=== PATIENT | female | born 1950 | race Caucasian/White ===

== ENCOUNTER 2017-11-06 07:48 | Day surgery (SDC) | payer OTHER ==
[2017-11-06 08:51] VITALS: O2SAT 100
--- NOTE | 2017-11-06 11:03 | CP.SDSHP ---
Same Day Surgery H & P - History Proposed Procedure: EGD Pre-Op Diagnosis: SEE NOTES - Previous Medical/Surgical History Cardiac: Hypertension Endocrine/Metabolic: Diabetes, Other Misc: Other Pain: 4.Moderate Pain - Allergies Allergies: Allergies No Known Allergies Allergy (Unverified 11/06/17 08:37) - Physical Exam General Appearance: N Vital Signs: Vital Signs 11/06/17 08:30 Temperature 98.6 F Pulse Rate 58 L Respiratory 19 Rate Blood Pressure 155/71 H O2 Sat by Pulse 100 Oximetry Mental Status: Alert & Oriented x3 Neuro: WNL Lungs: WNL GI: Other - {Optional Preform as Required} Breast: WNL Abdomen: Other Rectal: Other Integument: WNL : WNL Ortho: WNL ENT: WNL - Impression Pt. Evaluated Today:Candidate for Anesthesia & Procedure: Yes - Date & Time Time: 11:02 Short Stay Discharge - Short Stay Discharge Admitting Diagnosis/Reason for Visit: ANGIODYSPLASIA OF STOMACH AND DUODENUM WITH BLEEDI Disposition: HOME/ ROUTINE
[2017-11-06] MEDS ORDERED: Belladonna-Phenobarbital PO STA (11:04)
[2017-11-06] MEDS ORDERED: Propofol 10 mg/ml Inj (20 ML) ONE (11:05)
[2017-11-06 11:28] VITALS: TEMP 98.4
[2017-11-06 12:23] VITALS: BP 147/68; PULSE 70; RESP 16
== END 2017-11-06 12:15 | disposition home or self-care (01) ==
LOC: C.ENDO 07:48
PROVIDERS: ATTEND Specialist
DX: K29.70 Gastritis, unspecified, without bleeding (principal); K44.9 Diaphragmatic hernia without obstruction or gangrene; K21.0 Gastro-esophageal reflux disease with esophagitis; B96.81 Helicobacter pylori [H. pylori] as the cause of diseases classified elsewhere
CPT/HCPCS: 43239; 82948; 88305; 88342; J2001; J2704

== ENCOUNTER 2017-11-08 06:37 | Day surgery (SDC) | payer OTHER ==
--- NOTE | 2017-11-08 08:21 | CP.SDSHP ---
Same Day Surgery H & P - History Proposed Procedure: COLONSCOPY Pre-Op Diagnosis: SEE NOTES - Previous Medical/Surgical History Cardiac: Hypertension Endocrine/Metabolic: Diabetes, Other Misc: Other Pain: 4.Moderate Pain - Allergies Allergies: Allergies No Known Allergies Allergy (Unverified 11/06/17 08:37) - Physical Exam General Appearance: N Vital Signs: Vital Signs 11/08/17 06:53 Temperature 97.5 F L Pulse Rate 66 Respiratory 16 Rate Blood Pressure 155/78 H O2 Sat by Pulse 100 Oximetry Mental Status: Alert & Oriented x3 Neuro: WNL Heart: Other Lungs: WNL GI: Other - {Optional Preform as Required} Breast: WNL Abdomen: Other Rectal: Other Integument: WNL : WNL Ortho: WNL ENT: WNL - Impression Pt. Evaluated Today:Candidate for Anesthesia & Procedure: Yes - Date & Time Time: 08:24 Short Stay Discharge - Short Stay Discharge Admitting Diagnosis/Reason for Visit: ANEMIA, DIARRHEA Disposition: HOME/ ROUTINE
[2017-11-08] MEDS ORDERED: Lactated Ringer's 1,000 ML IV ONE ×2 (08:26)
[2017-11-08] MEDS ORDERED: Propofol 10 mg/ml Inj (20 ML) ONE (08:27)
[2017-11-08] MEDS ORDERED: Lactated Ringer's 500 ML IV SCH (08:30)
[2017-11-08 08:57] VITALS: TEMP 98
[2017-11-08] MEDS ORDERED: Belladonna-Phenobarbital PO ONE (09:10)
[2017-11-08 09:21] VITALS: O2SAT 99
[2017-11-08 09:41] VITALS: BP 144/58; PULSE 62; RESP 14
== END 2017-11-08 09:40 | disposition home or self-care (01) ==
LOC: C.ENDO 06:37
PROVIDERS: ATTEND Specialist
DX: R19.7 Diarrhea, unspecified (principal); R10.84 Generalized abdominal pain; D50.9 Iron deficiency anemia, unspecified; K64.4 Residual hemorrhoidal skin tags; K64.8 Other hemorrhoids; K57.30 Diverticulosis of large intestine without perforation or abscess without bleeding; E11.9 Type 2 diabetes mellitus without complications; I10 Essential (primary) hypertension; K52.9 Noninfective gastroenteritis and colitis, unspecified
CPT/HCPCS: 45380; 82948; 88305; 88313; 88342; J2704; J7120